=== PATIENT | female | born 1930 | race Caucasian/White ===

== ENCOUNTER 2019-06-20 20:55 | Emergency (ER) | payer MEDICARE, OTHER ==
[~2019-06-20] VITALS: Ht 167.6 cm; Wt 45.4 kg
--- NOTE | 2019-06-20 20:57 | NUR ---
PT TRAVON BLS. TAKEN TO BED 10
[2019-06-20 20:58] VITALS: BP 133/70
--- NOTE | 2019-06-20 21:18 | NUR ---
PT MOVED TO BED 8
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
--- NOTE | 2019-06-20 21:36 | NUR ---
Dr. Simmons examining patient.
--- NOTE | 2019-06-20 21:47 | NUR ---
PT TAKEN TO CT
--- NOTE | 2019-06-20 21:58 | NUR ---
PT RETURN FROM CT
--- NOTE | 2019-06-20 23:49 | NUR ---
SPOKE WITH [facility]ILAN FROM [facility] REGARDING TRANSPORTATION FOR PT'S DISCHARGE. DILAN WILL FOLLOW UP REGARDING SITUATION.
[2019-06-21 02:20] VITALS: BP 143/88
--- NOTE | 2019-06-21 02:20 | NUR ---
PT DISCHARGED WITH PAPERWORK, PROVIDED TO [facility]. ENDORSED REPORT TO [facility] STAFF. NO MEDICATION RX PROVIDED. EDUCATED PT REGARDING D/C DIAGNOSIS AND INSTRUCTIONS. PT VERBALIZED UNDERSTANDING OF TEACHING. TOLD PT TO FOLLOW UP WITH PCP AND WHEN TO RETURN TO ED. PT AT STABLE CONDITION. ALL QUESTIONS ANSWERED.
--- NOTE | 2019-06-21 02:40 | NUR ---
Note undone in EDM - 06/21/19 at 0242 by [id number] PT DISCHARGED WITH PAPERWORK, PROVIDED TO [facility]. ENDORSED REPORT TO [facility] STAFF. NO MEDICATION RX PROVIDED. EDUCATED PT REGARDING D/C DIAGNOSIS AND INSTRUCTIONS. PT VERBALIZED UNDERSTANDING OF TEACHING. TOLD PT TO FOLLOW UP WITH PCP AND WHEN TO RETURN TO ED. PT AT STABLE CONDITION. ALL QUESTIONS ANSWERED.
== END 2019-06-21 02:20 | disposition home or self-care (01) ==
LOC: MED 20:55
DX: S01.81XA Laceration without foreign body of other part of head, initial encounter (principal); E11.9 Type 2 diabetes mellitus without complications; I10 Essential (primary) hypertension; W19.XXXA Unspecified fall, initial encounter; Y93.89 Activity, other specified; Y92.89 Other specified places as the place of occurrence of the external cause; Y99.8 Other external cause status; Z86.59 Personal history of other mental and behavioral disorders
CPT/HCPCS: 70450; 70486; 99284